=== PATIENT | female | born 1995 | race Caucasian/White ===

== ENCOUNTER → 2017-02-24 | Outpatient (CLI) | payer OTHER | END | disposition home or self-care (01) | LOC: LAB 12:55 | PROVIDERS: ATTEND Internal Medicine | DX: Z02.9 Encounter for administrative examinations, unspecified (principal) ==

== ENCOUNTER → 2017-03-08 | Outpatient (CLI) | payer OTHER ==
[2017-03-08 13:52] LABS: ASPARTATE AMINO TRANSFERASE 6 U/L (15-37); BLOOD UREA NITROGEN 13 mg/dL (7-18)
[2017-03-08 13:56] LABS: PATH.CAST-FLAG NOT PRESENT; SPERM-FLAG NOT PRESENT; SRC-FLAG NOT PRESENT; XTAL-FLAG NOT PRESENT; YLC-FLAG NOT PRESENT
== END | disposition home or self-care (01) ==
LOC: LAB 13:18
PROVIDERS: ATTEND Internal Medicine
DX: E55.9 Vitamin D deficiency, unspecified (principal); E75.21 Fabry (-Anderson) disease; J45.909 Unspecified asthma, uncomplicated; R53.82 Chronic fatigue, unspecified; R73.02 Impaired glucose tolerance (oral)
CPT/HCPCS: 36415; 80053; 81001; 81003; 82306; 83036; 84443; 87086

== ENCOUNTER 2019-10-09 21:41 | Inpatient (IN) | payer OTHER ==
[~2019-10-09] VITALS: Ht 162.6 cm; Wt 63.4 kg
[2019-10-09] MEDS ORDERED: MAGNESIUM SULFATE PMX 2GM/50ML 50 ML IV ONE (22:00)
[2019-10-09] MEDS ORDERED: ALBUTEROL 0.5%, 20ML NPPBCONT PRN (22:00)
[2019-10-09] MEDS ORDERED: methylPREDNISolone SOD SUCC 125 MG/2 ML IVPush SCH (22:00)
--- NOTE | 2019-10-09 22:03 | NUR ---
VO FROM DR FLEMING: (T TO GET MAG) "RUN MAG IN OVER 30 MINUTES"
[2019-10-09] MEDS ORDERED: ALBUTEROL SULFATE 2.5MG/0.5ML ONE (22:05)
[2019-10-09] MEDS ORDERED: methylPREDNISolone SOD SUCC 125 MG/2 ML ONE (22:08)
[2019-10-09] MEDS ORDERED: MAGNESIUM SULFATE PMX 2GM/50ML 50 ML ONE (22:08)
--- NOTE | 2019-10-09 22:11 | NUR ---
RT IN ROOM. NEB TX TO BE STARTED. PT SITTING UPRIGHT ON BED.
--- NOTE | 2019-10-09 22:13 | NUR ---
KIKE, MEDICAL STUDENT, BS FOR EXAM. PT'S BOYFRIEND IN ROOM.
--- NOTE | 2019-10-09 22:16 | NUR ---
DR FLEMING BS
--- NOTE | 2019-10-09 22:33 | NUR ---
MAG SULFATE SHEA, INFUSING AT 50ML/HR VIA PUMP (PER REVISED VO DR FLEMING)
--- NOTE | 2019-10-09 22:35 | NUR ---
SOLU-MEDROL GIVEN PER EMAR
[2019-10-09] MEDS ORDERED: ALBU8.5H8 INH (22:39)
--- NOTE | 2019-10-09 22:40 | NUR ---
PT REPORTS SHE USES PROAIR INHALER Q 2HRS PRN.
--- NOTE | 2019-10-09 22:44 | NUR ---
DR FLEMING NOTIFIED OF PT STATUS.
--- NOTE | 2019-10-09 22:50 | NUR ---
PT REPORT TO RONEL YATES. PT CARE TRANSFERRED. MAG SULFATE INFUSING VIA PUMP. JENNIFER TX IN PROGRESS.
--- NOTE | 2019-10-09 23:52 | NUR ---
PT WITH IMPROVED WORK OF BREATING ALTHOUGH ROOM AIR SATS IN THE LOW 90S
[2019-10-10 00:29] LABS: MEAN CORPUSCULAR HEMOGLOBIN 30.2 pg (27.0-34.8); MEAN CORPUSCULAR HGB CONC 33.5 g/dL (32.4-35.8); MEAN PLATELET VOLUME 9.5 fL (7.4-10.4); PLATELET COUNT 208 x10^3/uL (130-400); RED BLOOD COUNT 5.18 x10^6/uL (3.82-5.3); RED CELL DISTRIBUTION WIDTH 12.6 % (9.6-15.2)
[2019-10-10 00:40] LABS: ANION GAP 10 mmol/L (5-15); CALCIUM 8.9 mg/dL (8.5-10.1); CHLORIDE 108 mmol/L (98-107)
[2019-10-10 00:41] LABS: CREATININE 0.82 mg/dL (0.55-1.02)
--- NOTE | 2019-10-10 00:47 | NUR ---
PT O2 SATS DROP IN TO THE HIGH 80S AT TIME SO 2L NC PLACED AND O2 SATS AROUND 94/95%
[2019-10-10] MEDS ORDERED: ALBUTEROL SULFATE 2.5 MG/3 ML NPPB ONE (01:00)
[2019-10-10] MEDS ORDERED: ALBUTEROL/IPRATROPIUM 2.5MG/0.5MG, 3 ML NPPB ONE (01:00)
[2019-10-10 01:04] LABS: BASOPHILS # (AUTO) 0.02 x10^3/uL (0-0.1); BASOPHILS % (AUTO) 0 % (0-1); EOSINOPHILS # (AUTO) 0.11 x10^3/uL (0-0.4); EOSINOPHILS % (AUTO) 1 % (1-7); LYMPHOCYTES # (AUTO) 0.45 x10^3/uL (1-3.4); LYMPHOCYTES % (AUTO) 3 % (22-44); MD SCAN; MONOCYTES # (AUTO) 0.11 x10^3/uL (0.2-0.8); MONOCYTES % (AUTO) 1 % (2-9); NEUTROPHILS # (AUTO) 12.74 x10^3/uL (1.8-6.8); NEUTROPHILS % (AUTO) 95 % (42-75)
--- NOTE | 2019-10-10 01:07 | NUR ---
REPORT TO RONEL LEE
[2019-10-10 01:31] VITALS: BP 145/84
[2019-10-10 01:57] VITALS: BP 145/84
[2019-10-10] MEDS ORDERED: ONDANSETRON 2MG/ML, 2ML IVPush PRN (03:00)
[2019-10-10] MEDS: AZITHROMYCIN 500 MG TABLET PO SCH (03:19)
[2019-10-10] MEDS: methylPREDNISolone SOD SUCC 125 MG/2 ML IVPush SCH ×4 (03:19→20:54)
[2019-10-10] MEDS: ACETAMINOPHEN 325 MG TABLET PO PRN ×2 (03:28→21:04)
[2019-10-10] MEDS: ALBUTEROL SULFATE 2.5 MG/3 ML NPPB SCH ×6 (03:41→23:44)
[2019-10-10 07:16] VITALS: BP 150/99
[2019-10-10] MEDS: FAMOTIDINE 20 MG TABLET PO SCH ×2 (09:04→20:54)
[2019-10-10 10:21] LABS: HCG UR SG 1.011 (1.003-1.030)
[2019-10-10] MEDS: GUAIFENESIN 200 MG TABLET PO SCH ×3 (10:24→20:54)
[2019-10-10] MEDS: POTASSIUM CHLORIDE 20 MEQ TAB.ER.PRT PO SCH ×2 (10:24→16:31)
[2019-10-10 13:24] VITALS: BP 169/77
[2019-10-10 20:03] VITALS: BP 147/94
[2019-10-11] MEDS: ALBUTEROL SULFATE 2.5 MG/3 ML NPPB SCH (00:45)
[2019-10-11 01:47] VITALS: BP 139/83
[2019-10-11] MEDS: methylPREDNISolone SOD SUCC 125 MG/2 ML IVPush SCH (02:34)
[2019-10-11] MEDS: ALBUTEROL SULFATE 2.5 MG/3 ML NPPB PRN ×3 (05:32→08:00)
[2019-10-11 05:34] LABS: ANION GAP 9 mmol/L (5-15); CHLORIDE 109 mmol/L (98-107)
[2019-10-11 05:38] LABS: ALANINE AMINOTRANSFERASE 16 U/L (12-78); ALKALINE PHOSPHATASE 59 U/L (45-117); BILIRUBIN,TOTAL 0.8 mg/dL (0.2-1.0); CALCIUM 9.1 mg/dL (8.5-10.1); CREATININE 0.69 mg/dL (0.55-1.02); TOTAL PROTEIN 8.3 g/dL (6.4-8.2)
[2019-10-11 05:43] LABS: BASOPHILS % (AUTO) 0 % (0-1); EOSINOPHILS % (AUTO) 0 % (1-7); LYMPHOCYTES % (AUTO) 5 % (22-44); MD NO; MEAN CORPUSCULAR HEMOGLOBIN 30.2 pg (27.0-34.8); MEAN CORPUSCULAR HGB CONC 33.4 g/dL (32.4-35.8); MEAN CORPUSCULAR VOLUME 90.4 fL (80-100); MEAN PLATELET VOLUME 9.6 fL (7.4-10.4); MONOCYTES # (AUTO) 0.26 x10^3/uL (0.2-0.8); MONOCYTES % (AUTO) 2 % (2-9); NEUTROPHILS # (AUTO) 16.09 x10^3/uL (1.8-6.8); NEUTROPHILS % (AUTO) 93 % (42-75); PLATELET COUNT 224 x10^3/uL (130-400); RED BLOOD COUNT 5.05 x10^6/uL (3.82-5.3); RED CELL DISTRIBUTION WIDTH 13.2 % (9.6-15.2)
[2019-10-11] MEDS: GUAIFENESIN 200 MG TABLET PO SCH ×2 (05:47→10:31)
[2019-10-11 07:25] VITALS: BP 150/83
[2019-10-11] MEDS: AZITHROMYCIN 500 MG TABLET PO SCH (09:11)
[2019-10-11] MEDS: FAMOTIDINE 20 MG TABLET PO SCH (09:11)
[2019-10-11] MEDS ORDERED: AZIT500T10 PO (10:16)
[2019-10-11] MEDS ORDERED: TIOT18CA INH (10:16)
[2019-10-11] MEDS ORDERED: BUDE10.2 INH (10:16)
[2019-10-11] MEDS ORDERED: PRED20TA PO (10:16)
[2019-10-11] MEDS ORDERED: GUAI200T37 PO (10:16)
== END 2019-10-11 12:06 | disposition home or self-care (01) | DRG 189 ==
LOC: ED 10-10 00:11 → EDIP 10-10 00:20 → 5SO 10-10 01:22 → DCLOUNGE 10-11 11:52
PROVIDERS: ADMIT Family Medicine; ATTEND Family Medicine
DX: J96.01 Acute respiratory failure with hypoxia (principal); J45.902 Unspecified asthma with status asthmaticus; E87.6 Hypokalemia; J20.9 Acute bronchitis, unspecified; Z81.1 Family history of alcohol abuse and dependence; J06.9 Acute upper respiratory infection, unspecified
CPT/HCPCS: 36415; 96365; 96375; 99291; J7613; J7620; 71045; 80048; 80053; 81025; 85025; 93005; 94640; 94644; G0378; J2930; J3475; J7512